=== PATIENT | male | born 1985 | race Caucasian/White ===

== ENCOUNTER 2016-07-09 15:10 | Emergency (ER) | payer OTHER ==
--- NOTE | 2016-07-09 18:39 | ED NURSING NOTES ---
Clinical Report - Nurses [facility] [place] [address] 07/09/2016 15:11 Patient: MARS SABILLON TRIAGE Triage time 16:33. Chief Complaint: RIGHT LOWER EXTREMITY PAIN. Location of symptoms- (frostbite on feet, fell through a icey pond, walked barefoot outside 2 miles). LEFT LOWER EXTREMITY PAIN. --16:34 Margarita Mora R.N. 16:39 07/09/16. BP: 135/74. HR: 78. RR: 18. O2 saturation: 100%. Temp: 97.6 F. Pain level now: 04/11. --16:40 Margarita Mora R.N. Weight: 74.8 kg stated. Height/Length: 71 inches Per Patient. BMI: 23. --16:38 Margarita Mora R.N. Medications None. --16:36 Margarita Mora R.N. Allergies No Known Drug Allergy. --16:36 Margarita Mora R.N. History Arrived by private vehicle. Historian: patient. --16:34 Margarita Mora R.N. Accompanied by friend. PAST MEDICAL HX: Negative. SURGERY HX: No history of previous surgery. SOCIAL HX: Former smoker. Occasional alcohol use. No drug use. NUTRITIONAL RISK ASSESSMENT: The nutritional risk assessment revealed no deficiencies. FUNCTIONAL ASSESSMENT: Functional assessment: no impairments noted. LEARNING NEEDS ASSESSMENT: The learning needs assessment revealed no barriers. --16:40 Margarita Mora R.N. PROBLEMS: URI. Lifestyle / Substance Problems. --16:37 Margarita Mora R.N. ADDITIONAL SURGERIES: no known surgeries. PHYSICAL ASSESSMENT 16:39 07/09/16. GENERAL / NEURO / PSYCH: ( Both feet, toes purple in color). --16:39 Margarita Mora R.N. NURSING PROGRESS NOTES 16:40 07/09/16. Patient identifiers checked. Call light placed in reach. Bed placed in lowest position. Patient ready for evaluation- chart flagged. --16:40 Margarita Mora R.N. 16:52 07/09/2016 Started bag #1 1000 mL IV Fluids IV NS (Saline); at 1000 mL/hr over 60 minute(s) via site #1. Allergies verified and confirmed 5 rights. IV patency established. IV site checked: no pain, redness, or swelling. IV flushed thoroughly pre- and post-medication administration. --16:57 Glenn Gaxiola R.N. 16:56 07/09/2016 Site #1 started via IV in the right antecubital space with an 20g angiocath, with aseptic technique and good blood return; one attempt. Blood drawn: rainbow set. Labeled in the presence of the patient and sent to the lab. --16:56 Glenn Gaxiola R.N. 16:59 07/09/2016 Dilaudid (HYDROmorphone HCl PF) IVP 1 mg given over 2 minute(s) via site #1. --17:04 Glenn Gaxiola R.N. 17:11 07/09/16. ( Photos taken of both feet.). --17:11 Steffany Watson 18:00 07/09/2016 IV Fluids IV NS Discontinued: bag #1 infused. Total amount infused: 1000 mL. IV patency established. IV site checked: no pain, redness, or swelling. IV flushed thoroughly. --19:30 Glenn Gaxiola R.N. 19:00 07/09/2016 Site #1 removed upon discharge. Catheter intact. Manual pressure, bandaid and bandage applied. --19:31 Glenn Gaxiola R.N. 19:05 07/09/2016 TDAP IM 0.5 mL given. (Lot#: [id number], expiration date: 04/06/2018, Insulation And Flooring Assembler: sanofi pasteur). Given in the left deltoid. Allergies verified. --19:10 Glenn Gaxiola R.N. DISPOSITION / DISCHARGE 19:00 07/09/16. BP: 117/68. HR: 87. RR: 16. O2 saturation: 98% on room air. Temp: 98.7 F (oral). Pain level now: 2/10. Additional comments: Toes of feet. --19:27 Glenn Gaxiola R.N. Departure time: 1909. --:27 Glenn Gaxiola R.N. 19:10. Condition at departure: improved. No learning barriers present. Discharge instructions provided and reviewed with the patient. Reviewed medication(s) precautions, dosing and course information (prescription given to pt). Treatments reviewed (frostbite). Reviewed referral to a surgeon (wound care center). Patient and maintainer sewer and waterworks verbalized understanding. Written instructions provided in Portuguese. The patient was discharged by the physician. He was discharged home and accompanied by maintainer sewer and waterworks. He left the Emergency Department ambulatory and via private vehicle. Surgical Appliances Salesperson driving. --19:29 Glenn Gaxiola R.N. Locked/Released at 07/09/2016 19:33 by Glenn Gaxiola R.N.
--- NOTE | 2016-07-09 18:39 | ED ORDER SUMMARY ---
..... Patient: MARS SABILLON OrderSheet [facility] VisitID: [id number] [place] [address] 31y, M Registration Date/Time: 07/09/2016 ORDER SHEET Weight: 74.8 kg (stated) Allergies: No Known Drug Allergy GENERAL ORDERS: CBC w Diff Urgent (16:55 07/09/2016 Guanaco Benson.N. verbal order read back to Jessica CHAN) (16:58 Guanaco R.N.) (Ack 17:00 Agustín) CMP Urgent (16:55 07/09/2016 Guanaco R.N. verbal order read back to Jessica CHAN) (16:58 Guanaco R.N.) (Ack 17:00 Agustín) -- (PHOTOGRAPH FEET.) (18:33 07/09/2016 Jessica CHAN) (18:34 TBergley) MEDICATION ORDERS: Tdap IM 0.5 mL (NOW) (17:49 07/09/2016 Jessica CHAN) (19:10 Guanaco R.N.) IV FLUIDS: IV NS : initial bolus none -, then 1000 mL/hr (NOW) (16:55 07/09/2016 Guanaco Benson.N. verbal order read back to Jessica CHAN) (16:57 Zoieelli R.N.) IV Saline Lock (16:55 07/09/2016 Guanaco R.N. verbal order read back to Jessica CHAN) (16:56 Guanaco R.N.) Dilaudid IV 1 mg (HIGH ALERT MEDICATION, NOW) (17:03 07/09/2016 Guanaco R.N. verbal order read back to Jessica CHAN) (17:04 Guanaco R.N.) ORDER SHEET NOTES: [Electronically signed by Glenn Gaxiola R.N. (19:33 07/09/2016)] [Electronically signed by Steven Zambrano MD (22:47 07/11/2016)] [Electronically locked/signed by Glenn Gaxiola R.N. (19:33 07/09/2016)]
--- NOTE | 2016-07-09 18:39 | ED CLINICAL REPORT ---
Clinical Report - Physicians/Mid Levels [facility] [address] [place] [address] 07/09/2016 15:11 Patient: MARS OWEN Time Seen: 16:58. Arrived- By private vehicle. Historian- patient and family. HISTORY OF PRESENT ILLNESS Chief Complaint: Injury to the right and left foot. The injury happened today. (In the wong). ( Mr. Oewn went for a long walk in the [facility] on a snowy day. The walk ended at 1 pm. He started in leather sports shoes. He ended in stocking feet. Further details are not forthcoming. He did tell the RN that he fell through ice into water.). No other injury. REVIEW OF SYSTEMS The patient complains of pain on weight bearing. No swelling, tingling, weakness, numbness or skin laceration. PAST HISTORY PCP: None Ops: None. Tetanus immunization status is unknown. SOCIAL HISTORY Former smoker. ADDITIONAL NOTES The nursing notes have been reviewed. PHYSICAL EXAM Vital Signs: 07/09/2016 19:00 BP: 117/68. HR: 87. RR: 16. O2 saturation: 98%. Temp: 98.7 F. Pain level now: 2/10. 07/09/2016 16:39 BP: 135/74. HR: 78. RR: 18. O2 saturation: 100%. Temp: 97.6 F. Pain level now: 10/10. Appearance: (The toes are quite blue distally. The forefoot is normal). Head: Head atraumatic. Respiratory: Chest nontender. Abdomen: Nontender. Extremities: Right great toe. (Blue no blisters). Left great toe. (Blue no blisters). Right second toe. (Blue no blisters). Left second toe. (Blue no blisters). Right third toe. (Blue no blisters). Left third toe. (Blue no blisters). Right fourth toe. (Blue no blisters). Left fourth toe. (Blue no blisters). Right fifth toe. (Blue no blisters). No ankle injury. Foot and ankle exam otherwise negative. Extremities otherwise negative. Neuro, Vascular and Tendons: Vascular status intact. No pulse deficit present. Motor intact. Neuro: No alteration in mental status. PROGRESS AND PROCEDURES Course of Care: 18:35 07/09/16. I discussed the patient with Dr Pennington. He will be seen in the wound clinic. He has frostbite. Conservative management is indicated. He is given Dilaudid for pain control and Rx for pain control. Disposition: Discharged. Condition: stable. CLINICAL IMPRESSION Frostbite involving the right foot and left foot. INSTRUCTIONS (KEEP FEET VERY CLEAN ELEVATE AND KEEP WARM THIS WILL TAKE MONTHS TO BE CARED FOR YOU NEED TO BE SEEN AT THE WOUND CARE CLINIC. MINIMAL WAKING. STIFF WIDE TOE SHOES.). Prescription Medications: Oxycodone/APAP 5 mg/325 mg: take 1 tablet orally every 4 hours as needed for pain. Dispense twenty-five (25). No refill. Understanding of the discharge instructions verbalized by patient and family. Follow-up with: Akil Pennington MD, General Surgeon, , [facility], [address] [place] [address] [address], [place], [address] Follow up. Call for an appointment. Follow-up with: [facility], , , [facility], [address] [place] [address] [address], [place], [address] Follow up. Call for the next available appointment. (Electronically signed by Steven Zambrano MD 07/11/2016 22:47)
--- NOTE | 2016-07-09 18:39 | ED NURSING NOTES ---
Clinical Report - Nurses [facility] [place] [address] 07/09/2016 15:11 Patient: MARS SABILLON TRIAGE Triage time 16:33. Chief Complaint: RIGHT LOWER EXTREMITY PAIN. Location of symptoms- (frostbite on feet, fell through a icey pond, walked barefoot outside 2 miles). LEFT LOWER EXTREMITY PAIN. --16:34 Margarita Mora R.N. 16:39 07/09/16. BP: 135/74. HR: 78. RR: 18. O2 saturation: 100%. Temp: 97.6 F. Pain level now: 04/11. --16:40 Margarita Mora R.N. Weight: 74.8 kg stated. Height/Length: 71 inches Per Patient. BMI: 23. --16:38 Margarita Mora R.N. Medications None. --16:36 Margarita Mora R.N. Allergies No Known Drug Allergy. --16:36 Margarita Mora R.N. History Arrived by private vehicle. Historian: patient. --16:34 Margarita Mora R.N. Accompanied by friend. PAST MEDICAL HX: Negative. SURGERY HX: No history of previous surgery. SOCIAL HX: Former smoker. Occasional alcohol use. No drug use. NUTRITIONAL RISK ASSESSMENT: The nutritional risk assessment revealed no deficiencies. FUNCTIONAL ASSESSMENT: Functional assessment: no impairments noted. LEARNING NEEDS ASSESSMENT: The learning needs assessment revealed no barriers. --16:40 Margarita Mora R.N. PROBLEMS: URI. Lifestyle / Substance Problems. --16:37 Margarita Mora R.N. ADDITIONAL SURGERIES: no known surgeries. PHYSICAL ASSESSMENT 16:39 07/09/16. GENERAL / NEURO / PSYCH: ( Both feet, toes purple in color). --16:39 Margarita Mora R.N. NURSING PROGRESS NOTES 16:40 07/09/16. Patient identifiers checked. Call light placed in reach. Bed placed in lowest position. Patient ready for evaluation- chart flagged. --16:40 Margarita Mora R.N. 16:52 07/09/2016 Started bag #1 1000 mL IV Fluids IV NS (Saline); at 1000 mL/hr over 60 minute(s) via site #1. Allergies verified and confirmed 5 rights. IV patency established. IV site checked: no pain, redness, or swelling. IV flushed thoroughly pre- and post-medication administration. --16:57 Glenn Gaxiola R.N. 16:56 07/09/2016 Site #1 started via IV in the right antecubital space with an 20g angiocath, with aseptic technique and good blood return; one attempt. Blood drawn: rainbow set. Labeled in the presence of the patient and sent to the lab. --16:56 Glenn Gaxiola R.N. 16:59 07/09/2016 Dilaudid (HYDROmorphone HCl PF) IVP 1 mg given over 2 minute(s) via site #1. --17:04 Glenn Gaxiola R.N. 17:11 07/09/16. ( Photos taken of both feet.). --17:11 Steffany Watson 18:00 07/09/2016 IV Fluids IV NS Discontinued: bag #1 infused. Total amount infused: 1000 mL. IV patency established. IV site checked: no pain, redness, or swelling. IV flushed thoroughly. --19:30 Glenn Gaxiola R.N. 19:00 07/09/2016 Site #1 removed upon discharge. Catheter intact. Manual pressure, bandaid and bandage applied. --19:31 Glenn Gaxiola R.N. 19:05 07/09/2016 TDAP IM 0.5 mL given. (Lot#: [id number], expiration date: 04/06/2018, Talent Manager: sanofi pasteur). Given in the left deltoid. Allergies verified. --19:10 Glenn Gaxiola R.N. DISPOSITION / DISCHARGE 19:00 07/09/16. BP: 117/68. HR: 87. RR: 16. O2 saturation: 98% on room air. Temp: 98.7 F (oral). Pain level now: 2/10. Additional comments: Toes of feet. --19:27 Glenn Gaxiola R.N. Departure time: 1909. --:27 Glenn Gaxiola R.N. 19:10. Condition at departure: improved. No learning barriers present. Discharge instructions provided and reviewed with the patient. Reviewed medication(s) precautions, dosing and course information (prescription given to pt). Treatments reviewed (frostbite). Reviewed referral to a surgeon (wound care center). Patient and animal husbandry technician verbalized understanding. Written instructions provided in Icelandic. The patient was discharged by the physician. He was discharged home and accompanied by animal husbandry technician. He left the Emergency Department ambulatory and via private vehicle. Apparel Cutter driving. --19:29 Glenn Gaxiola R.N. Locked/Released at 07/09/2016 19:33 by Glenn Gaxiola R.N.
--- NOTE | 2016-07-09 18:39 | ED ORDER SUMMARY ---
..... Patient: MARS SABILLON OrderSheet [facility] VisitID: [id number] [place] [address] 31y, M Registration Date/Time: 07/09/2016 ORDER SHEET Weight: 74.8 kg (stated) Allergies: No Known Drug Allergy GENERAL ORDERS: CBC w Diff Urgent (16:55 07/09/2016 Guanaco Benson.N. verbal order read back to Jessica CHAN) (16:58 Guanaco R.N.) (Ack 17:00 Agustín) CMP Urgent (16:55 07/09/2016 Guanaco R.N. verbal order read back to Jessica CHAN) (16:58 Guanaco R.N.) (Ack 17:00 Agustín) -- (PHOTOGRAPH FEET.) (18:33 07/09/2016 Jessica CHAN) (18:34 TBergley) MEDICATION ORDERS: Tdap IM 0.5 mL (NOW) (17:49 07/09/2016 Jessica CHAN) (19:10 Guanaco R.N.) IV FLUIDS: IV NS : initial bolus none -, then 1000 mL/hr (NOW) (16:55 07/09/2016 Guanaco Benson.N. verbal order read back to Jessica CHAN) (16:57 Zoieelli R.N.) IV Saline Lock (16:55 07/09/2016 Guanaco R.N. verbal order read back to Jessica CHAN) (16:56 Guanaco R.N.) Dilaudid IV 1 mg (HIGH ALERT MEDICATION, NOW) (17:03 07/09/2016 Guanaco R.N. verbal order read back to Jessica CHAN) (17:04 Guanaco R.N.) ORDER SHEET NOTES: [Electronically signed by Glenn Gaxiola R.N. (19:33 07/09/2016)] [Electronically signed by Steven Zambrano MD (22:47 07/11/2016)] [Electronically locked/signed by Glenn Gaxiola R.N. (19:33 07/09/2016)]
--- NOTE | 2016-07-09 18:39 | ED CLINICAL REPORT ---
Clinical Report - Physicians/Mid Levels [facility] [address] [place] [address] 07/09/2016 15:11 Patient: MARS OWEN Time Seen: 16:58. Arrived- By private vehicle. Historian- patient and family. HISTORY OF PRESENT ILLNESS Chief Complaint: Injury to the right and left foot. The injury happened today. (In the wong). ( Mr. Owen went for a long walk in the [facility] [place] on a snowy day. The walk ended at 1 pm. He started in leather sports shoes. He ended in stocking feet. Further details are not forthcoming. He did tell the RN that he fell through ice into water.). No other injury. REVIEW OF SYSTEMS The patient complains of pain on weight bearing. No swelling, tingling, weakness, numbness or skin laceration. PAST HISTORY PCP: None Ops: None. Tetanus immunization status is unknown. SOCIAL HISTORY Former smoker. ADDITIONAL NOTES The nursing notes have been reviewed. PHYSICAL EXAM Vital Signs: 07/09/2016 19:00 BP: 117/68. HR: 87. RR: 16. O2 saturation: 98%. Temp: 98.7 F. Pain level now: 2/10. 07/09/2016 16:39 BP: 135/74. HR: 78. RR: 18. O2 saturation: 100%. Temp: 97.6 F. Pain level now: 10/10. Appearance: (The toes are quite blue distally. The forefoot is normal). Head: Head atraumatic. Respiratory: Chest nontender. Abdomen: Nontender. Extremities: Right great toe. (Blue no blisters). Left great toe. (Blue no blisters). Right second toe. (Blue no blisters). Left second toe. (Blue no blisters). Right third toe. (Blue no blisters). Left third toe. (Blue no blisters). Right fourth toe. (Blue no blisters). Left fourth toe. (Blue no blisters). Right fifth toe. (Blue no blisters). No ankle injury. Foot and ankle exam otherwise negative. Extremities otherwise negative. Neuro, Vascular and Tendons: Vascular status intact. No pulse deficit present. Motor intact. Neuro: No alteration in mental status. PROGRESS AND PROCEDURES Course of Care: 18:35 07/09/16. I discussed the patient with Dr Pennington. He will be seen in the wound clinic. He has frostbite. Conservative management is indicated. He is given Dilaudid for pain control and Rx for pain control. Disposition: Discharged. Condition: stable. CLINICAL IMPRESSION Frostbite involving the right foot and left foot. INSTRUCTIONS (KEEP FEET VERY CLEAN ELEVATE AND KEEP WARM THIS WILL TAKE MONTHS TO BE CARED FOR YOU NEED TO BE SEEN AT THE WOUND CARE CLINIC. MINIMAL WAKING. STIFF WIDE TOE SHOES.). Prescription Medications: Oxycodone/APAP 5 mg/325 mg: take 1 tablet orally every 4 hours as needed for pain. Dispense twenty-five (25). No refill. Understanding of the discharge instructions verbalized by patient and family. Follow-up with: Akil Pennington MD, General Surgeon, , [facility], [address] [place] [address], [place], [address] Follow up. Call for an appointment. Follow-up with: [facility], , , [facility], [address] [place] [address] [address], [place], [address] Follow up. Call for the next available appointment. (Electronically signed by Steven Zambrano MD 07/11/2016 22:47)
--- NOTE | 2016-07-11 22:47 | ED MED RECONCILIATION SUMMARY ---
Patient: MARS SABILLON Medication Reconciliation Report [facility] VisitID: [id number] [place] [address] 31y, M Registration Date/Time: 07/09/2016 Weight: 74.8 kg Height/Length: 71 in. BMI: 23.0 ALLERGIES: No Known Drug Allergy The patient's Home Medications are listed below: NONE. The source(s) of the original Home Medication information: Not obtained. The following Medications were given to the patient in the Emergency Department: IV NS IV Fluids bolus 0, then 1000 mL/hr, administered: 07/09/2016 4:52:00 PM Dilaudid [IVP] IVP 1 mg, administered: 07/09/2016 4:59:00 PM TDAP [IM] IM 0.5 mL, administered: 07/09/2016 7:05:00 PM The following Medications were prescribed to the patient: Oxycodone/APAP 5 mg/325 mg: take 1 tablet orally every 4 hours as needed for pain. Dispense twenty-five (25). No refill. -- Steven Zambrano MD
--- NOTE | 2016-07-11 22:47 | ED MAR SUMMARY ---
..... Medication Administration Record [facility] [address] [place] [address] Patient: MARS SABILLON Visit ID: [id number] 31y, M Weight: 74.8 kg Height/Length: 71 in BMI: 23 ALLERGIES: No Known Drug Allergy Start 16:52 07/09/2016 Glenn Gaxiola R.N., Stop 18:00 07/09/2016 Glenn Gaxiola R.N. Medication Administered: IV NS (SALINE), Dose: IV Fluids over 60 minute(s), Rate: 1000 mL/hr, Dispensed: 1000 mL bag, Site: #1. Medication Ordered: IV NS : initial bolus none -, then 1000 mL/hr (NOW). Given 16:59 07/09/2016 Glenn Gaxiola R.N. Medication Administered: DILAUDID [IVP] (HYDROMORPHONE HCL PF), Dose: 1 mg IVP over 2 minute(s), Site: #1 right AC. Medication Ordered: Dilaudid IV 1 mg (HIGH ALERT MEDICATION, NOW). Given 19:05 07/09/2016 Glenn Gaxiola R.N. Medication Administered: TDAP [IM], Dose: 0.5 mL IM. Medication Ordered: Tdap IM 0.5 mL (NOW).
--- NOTE | 2016-07-11 22:47 | ED MED RECONCILIATION SUMMARY ---
Patient: MARS SABILLON Medication Reconciliation Report [facility] VisitID: [id number] [place] [address] 31y, M Registration Date/Time: 07/09/2016 Weight: 74.8 kg Height/Length: 71 in. BMI: 23.0 ALLERGIES: No Known Drug Allergy The patient's Home Medications are listed below: NONE. The source(s) of the original Home Medication information: Not obtained. The following Medications were given to the patient in the Emergency Department: IV NS IV Fluids bolus 0, then 1000 mL/hr, administered: 07/09/2016 4:52:00 PM Dilaudid [IVP] IVP 1 mg, administered: 07/09/2016 4:59:00 PM TDAP [IM] IM 0.5 mL, administered: 07/09/2016 7:05:00 PM The following Medications were prescribed to the patient: Oxycodone/APAP 5 mg/325 mg: take 1 tablet orally every 4 hours as needed for pain. Dispense twenty-five (25). No refill. -- Steven Zambrano MD
--- NOTE | 2016-07-11 22:47 | ED DISCHARGE INSTRUCTIONS ---
Patient: MARS SABILLON General Instructions [facility] VisitID: [id number] [place] [address] 31y, M Registration Date/Time: 07/09/2016 Frostbite involving the right foot and left foot. INSTRUCTIONS (KEEP FEET VERY CLEAN ELEVATE AND KEEP WARM THIS WILL TAKE MONTHS TO BE CARED FOR YOU NEED TO BE SEEN AT THE WOUND CARE CLINIC. MINIMAL WAKING. STIFF WIDE TOE SHOES.). Prescription Medications: Oxycodone/APAP 5 mg/325 mg: take 1 tablet orally every 4 hours as needed for pain. Dispense twenty-five (25). No refill. Understanding of the discharge instructions verbalized by patient and family. Follow-up with: Akil Pennington MD, General Surgeon, , [facility], [address] [place] [address] [address], [place] [id number] Follow up. Call for an appointment. Follow-up with: [facility], , , [facility], [address] [place] [address] [address], [place] [phone] Follow up. Call for the next available appointment. ADDITIONAL INFORMATION Frostbite FROSTBITE is a freezing injury to the tissues. Ice crystals form in the frozen tissue and blood stops flowing. Blood vessels may become permanently damaged. The early stages of frostbite cause a white or blue-white skin color. The skin is cold, firm or hard. There is usually no pain and it is numb to the touch. Skin peeling, clear or blood-filled blisters may form. After re-warming, the frostbitten part will feel numb, then start to throb. Throbbing may last weeks to months and lead to tingling or electric shock feelings. There may be cold sensitivity, chronic numbness, chronic pain and other symptoms that can last years. At the time of initial injury, it is very hard to know the amount of tissue damage. It may take six months to determine which tissue will recover and which will remain permanently damaged. Final treatment may require surgery to remove any tissue. Home Care: Rest and elevate the injured part for the first 48 hours. Protect it from re-injury. If a dressing was applied, change it once a day. If the bandage sticks, soak it off in warm water . Wash the injured area daily with soap and water. You may apply Aloe Vera cream (or similar skin moisturizer) to closed blisters. If blisters are open, apply an antibiotic ointment or cream as directed. Check the area for the warning signs of infection listed below. You may use acetaminophen (Tylenol) or ibuprofen (Motrin, Advil) to control pain, unless another pain medicine was prescribed. [ NOTE : If you have chronic liver or kidney disease or ever had a stomach ulcer or GI bleeding, talk with your doctor before using these medicines.] Avoid alcohol and smoking since this affects the small blood vessels. Follow Up with your doctor as advised. Get Prompt Medical Attention if any of the following occur: Increasing pain, redness, swelling or pus coming from the wound Fever of 100.4F (38C) or higher, or as directed by your healthcare provider Oxycodone Hydrochloride, Acetaminophen Oral tablet What is this medicine? ACETAMINOPHEN; OXYCODONE (a set a ENEDELIA eva fen; ox i KOE done) is a pain reliever. It is used to treat mild to moderate pain. How should I use this medicine? Take this medicine by mouth with a full glass of water. Follow the directions on the prescription label. Take your medicine at regular intervals. Do not take your medicine more often than directed. Talk to your drapery seamstress regarding the use of this medicine in children. Special care may be needed. Patients over 65 years old may have a stronger reaction and need a smaller dose. What side effects may I notice from receiving this medicine? Side effects that you should report to your doctor or health direct care professional as soon as possible: allergic reactions like skin rash, itching or hives, swelling of the face, lips, or tongue breathing difficulties, wheezing confusion light headedness or fainting spells severe stomach pain yellowing of the skin or the whites of the eyes Side effects that usually do not require medical attention (report to your doctor or health direct care professional if they continue or are bothersome): dizziness drowsiness nausea vomiting What may interact with this medicine? alcohol antihistamines barbiturates like amobarbital, butalbital, butabarbital, methohexital, pentobarbital, phenobarbital, thiopental, and secobarbital benztropine drugs for bladder problems like solifenacin, trospium, oxybutynin, tolterodine, hyoscyamine, and methscopolamine drugs for breathing problems like ipratropium and tiotropium drugs for certain stomach or intestine problems like propantheline, homatropine methylbromide, glycopyrrolate, atropine, belladonna, and dicyclomine general anesthetics like etomidate, ketamine, nitrous oxide, propofol, desflurane, enflurane, halothane, isoflurane, and sevoflurane medicines for depression, anxiety, or psychotic disturbances medicines for sleep muscle relaxants naltrexone narcotic medicines (opiates) for pain phenothiazines like perphenazine, thioridazine, chlorpromazine, mesoridazine, fluphenazine, prochlorperazine, promazine, and trifluoperazine scopolamine tramadol trihexyphenidyl What if I miss a dose? If you miss a dose, take it as soon as you can. If it is almost time for your next dose, take only that dose. Do not take double or extra doses. Where should I keep my medicine? Keep out of the reach of children. This medicine can be abused. Keep your medicine in a safe place to protect it from theft. Do not share this medicine with anyone. Selling or giving away this medicine is dangerous and against the law. Store at room temperature between 20 and 25 degrees C (68 and 77 degrees F). Keep container tightly closed. Protect from light. This medicine may cause accidental overdose and if it is taken by other adults, children, or pets. Flush any unused medicine down the toilet to reduce the chance of harm. Do not use the medicine after the expiration date. What should I tell my health care provider before I take this medicine? They need to know if you have any of these conditions: brain tumor Crohn's disease, inflammatory bowel disease, or ulcerative colitis drink more than 3 alcohol containing drinks per day drug abuse or addiction head injury heart or circulation problems kidney disease or problems going to the bathroom liver disease lung disease, asthma, or breathing problems an unusual or allergic reaction to acetaminophen, oxycodone, other opioid analgesics, other medicines, foods, dyes, or preservatives or trying to get breast-feeding What should I watch for while using this medicine? Tell your doctor or health direct care professional if your pain does not go away, if it gets worse, or if you have new or a different type of pain. You may develop tolerance to the medicine. Tolerance means that you will need a higher dose of the medication for pain relief. Tolerance is normal and is expected if you take this medicine for a long time. Do not suddenly stop taking your medicine because you may develop a severe reaction. Your body becomes used to the medicine. This does NOT mean you are addicted. Addiction is a behavior related to getting and using a drug for a non-medical reason. If you have pain, you have a medical reason to take pain medicine. Your doctor will tell you how much medicine to take. If your doctor wants you to stop the medicine, the dose will be slowly lowered over time to avoid any side effects. You may get drowsy or dizzy. Do not drive, use machinery, or do anything that needs mental alertness until you know how this medicine affects you. Do not stand or sit up quickly, especially if you are an older patient. This reduces the risk of dizzy or fainting spells. Alcohol may interfere with the effect of this medicine. Avoid alcoholic drinks. There are different types of narcotic medicines (opiates) for pain. If you take more than one type at the same time, you may have more side effects. Give your health care provider a list of all medicines you use. Your doctor will tell you how much medicine to take. Do not take more medicine than directed. Call emergency for help if you have problems breathing. The medicine will cause constipation. Try to have a bowel movement at least every 2 to 3 days. If you do not have a bowel movement for 3 days, call your doctor or health direct care professional. Do not take Tylenol (acetaminophen) or medicines that have acetaminophen with this medicine. Too much acetaminophen can be very dangerous. Many nonprescription medicines contain acetaminophen. Always read the labels carefully to avoid taking more acetaminophen. You have been given the following additional information: Frostbite Oxycodone Hydrochloride, Acetaminophen Oral tablet (Electronically signed by Steven Zambrano MD 07/11/2016 22:47)
--- NOTE | 2016-07-11 22:47 | ED MAR SUMMARY ---
..... Medication Administration Record [facility] [address] [place] [address] Patient: MARS SABILLON Visit ID: [id number] 31y, M Weight: 74.8 kg Height/Length: 71 in BMI: 23 ALLERGIES: No Known Drug Allergy Start 16:52 07/09/2016 Glenn Gaxiola R.N., Stop 18:00 07/09/2016 Glenn Gaxiola R.N. Medication Administered: IV NS (SALINE), Dose: IV Fluids over 60 minute(s), Rate: 1000 mL/hr, Dispensed: 1000 mL bag, Site: #1. Medication Ordered: IV NS : initial bolus none -, then 1000 mL/hr (NOW). Given 16:59 07/09/2016 Glenn Gaxiola R.N. Medication Administered: DILAUDID [IVP] (HYDROMORPHONE HCL PF), Dose: 1 mg IVP over 2 minute(s), Site: #1 right AC. Medication Ordered: Dilaudid IV 1 mg (HIGH ALERT MEDICATION, NOW). Given 19:05 07/09/2016 Glenn Gaxiola R.N. Medication Administered: TDAP [IM], Dose: 0.5 mL IM. Medication Ordered: Tdap IM 0.5 mL (NOW).
--- NOTE | 2016-07-11 22:47 | ED DISCHARGE INSTRUCTIONS ---
Patient: MARS SABILLON General Instructions [facility] VisitID: [id number] [place] [address] 31y, M Registration Date/Time: 07/09/2016 Frostbite involving the right foot and left foot. INSTRUCTIONS (KEEP FEET VERY CLEAN ELEVATE AND KEEP WARM THIS WILL TAKE MONTHS TO BE CARED FOR YOU NEED TO BE SEEN AT THE WOUND CARE CLINIC. MINIMAL WAKING. STIFF WIDE TOE SHOES.). Prescription Medications: Oxycodone/APAP 5 mg/325 mg: take 1 tablet orally every 4 hours as needed for pain. Dispense twenty-five (25). No refill. Understanding of the discharge instructions verbalized by patient and family. Follow-up with: Akil Pennington MD, General Surgeon, , [facility], [address] [place] [address] [address], [place] [address] Follow up. Call for an appointment. Follow-up with: [facility], , , [facility], [address] [place] [address] [address], [place] [phone] Follow up. Call for the next available appointment. ADDITIONAL INFORMATION Frostbite FROSTBITE is a freezing injury to the tissues. Ice crystals form in the frozen tissue and blood stops flowing. Blood vessels may become permanently damaged. The early stages of frostbite cause a white or blue-white skin color. The skin is cold, firm or hard. There is usually no pain and it is numb to the touch. Skin peeling, clear or blood-filled blisters may form. After re-warming, the frostbitten part will feel numb, then start to throb. Throbbing may last weeks to months and lead to tingling or electric shock feelings. There may be cold sensitivity, chronic numbness, chronic pain and other symptoms that can last years. At the time of initial injury, it is very hard to know the amount of tissue damage. It may take six months to determine which tissue will recover and which will remain permanently damaged. Final treatment may require surgery to remove any tissue. Home Care: Rest and elevate the injured part for the first 48 hours. Protect it from re-injury. If a dressing was applied, change it once a day. If the bandage sticks, soak it off in warm water . Wash the injured area daily with soap and water. You may apply Aloe Vera cream (or similar skin moisturizer) to closed blisters. If blisters are open, apply an antibiotic ointment or cream as directed. Check the area for the warning signs of infection listed below. You may use acetaminophen (Tylenol) or ibuprofen (Motrin, Advil) to control pain, unless another pain medicine was prescribed. [ NOTE : If you have chronic liver or kidney disease or ever had a stomach ulcer or GI bleeding, talk with your doctor before using these medicines.] Avoid alcohol and smoking since this affects the small blood vessels. Follow Up with your doctor as advised. Get Prompt Medical Attention if any of the following occur: Increasing pain, redness, swelling or pus coming from the wound Fever of 100.4F (38C) or higher, or as directed by your healthcare provider Oxycodone Hydrochloride, Acetaminophen Oral tablet What is this medicine? ACETAMINOPHEN; OXYCODONE (a set a ENEDELIA eva fen; ox i KOE done) is a pain reliever. It is used to treat mild to moderate pain. How should I use this medicine? Take this medicine by mouth with a full glass of water. Follow the directions on the prescription label. Take your medicine at regular intervals. Do not take your medicine more often than directed. Talk to your thinner sprayer regarding the use of this medicine in children. Special care may be needed. Patients over 65 years old may have a stronger reaction and need a smaller dose. What side effects may I notice from receiving this medicine? Side effects that you should report to your doctor or health career development associate as soon as possible: allergic reactions like skin rash, itching or hives, swelling of the face, lips, or tongue breathing difficulties, wheezing confusion light headedness or fainting spells severe stomach pain yellowing of the skin or the whites of the eyes Side effects that usually do not require medical attention (report to your doctor or health career development associate if they continue or are bothersome): dizziness drowsiness nausea vomiting What may interact with this medicine? alcohol antihistamines barbiturates like amobarbital, butalbital, butabarbital, methohexital, pentobarbital, phenobarbital, thiopental, and secobarbital benztropine drugs for bladder problems like solifenacin, trospium, oxybutynin, tolterodine, hyoscyamine, and methscopolamine drugs for breathing problems like ipratropium and tiotropium drugs for certain stomach or intestine problems like propantheline, homatropine methylbromide, glycopyrrolate, atropine, belladonna, and dicyclomine general anesthetics like etomidate, ketamine, nitrous oxide, propofol, desflurane, enflurane, halothane, isoflurane, and sevoflurane medicines for depression, anxiety, or psychotic disturbances medicines for sleep muscle relaxants naltrexone narcotic medicines (opiates) for pain phenothiazines like perphenazine, thioridazine, chlorpromazine, mesoridazine, fluphenazine, prochlorperazine, promazine, and trifluoperazine scopolamine tramadol trihexyphenidyl What if I miss a dose? If you miss a dose, take it as soon as you can. If it is almost time for your next dose, take only that dose. Do not take double or extra doses. Where should I keep my medicine? Keep out of the reach of children. This medicine can be abused. Keep your medicine in a safe place to protect it from theft. Do not share this medicine with anyone. Selling or giving away this medicine is dangerous and against the law. Store at room temperature between 20 and 25 degrees C (68 and 77 degrees F). Keep container tightly closed. Protect from light. This medicine may cause accidental overdose and if it is taken by other adults, children, or pets. Flush any unused medicine down the toilet to reduce the chance of harm. Do not use the medicine after the expiration date. What should I tell my health care provider before I take this medicine? They need to know if you have any of these conditions: brain tumor Crohn's disease, inflammatory bowel disease, or ulcerative colitis drink more than 3 alcohol containing drinks per day drug abuse or addiction head injury heart or circulation problems kidney disease or problems going to the bathroom liver disease lung disease, asthma, or breathing problems an unusual or allergic reaction to acetaminophen, oxycodone, other opioid analgesics, other medicines, foods, dyes, or preservatives or trying to get breast-feeding What should I watch for while using this medicine? Tell your doctor or health career development associate if your pain does not go away, if it gets worse, or if you have new or a different type of pain. You may develop tolerance to the medicine. Tolerance means that you will need a higher dose of the medication for pain relief. Tolerance is normal and is expected if you take this medicine for a long time. Do not suddenly stop taking your medicine because you may develop a severe reaction. Your body becomes used to the medicine. This does NOT mean you are addicted. Addiction is a behavior related to getting and using a drug for a non-medical reason. If you have pain, you have a medical reason to take pain medicine. Your doctor will tell you how much medicine to take. If your doctor wants you to stop the medicine, the dose will be slowly lowered over time to avoid any side effects. You may get drowsy or dizzy. Do not drive, use machinery, or do anything that needs mental alertness until you know how this medicine affects you. Do not stand or sit up quickly, especially if you are an older patient. This reduces the risk of dizzy or fainting spells. Alcohol may interfere with the effect of this medicine. Avoid alcoholic drinks. There are different types of narcotic medicines (opiates) for pain. If you take more than one type at the same time, you may have more side effects. Give your health care provider a list of all medicines you use. Your doctor will tell you how much medicine to take. Do not take more medicine than directed. Call emergency for help if you have problems breathing. The medicine will cause constipation. Try to have a bowel movement at least every 2 to 3 days. If you do not have a bowel movement for 3 days, call your doctor or health career development associate. Do not take Tylenol (acetaminophen) or medicines that have acetaminophen with this medicine. Too much acetaminophen can be very dangerous. Many nonprescription medicines contain acetaminophen. Always read the labels carefully to avoid taking more acetaminophen. You have been given the following additional information: Frostbite Oxycodone Hydrochloride, Acetaminophen Oral tablet (Electronically signed by Steven Zambrano MD 07/11/2016 22:47)
== END 2016-07-09 19:10 | disposition home or self-care (01) ==
LOC: ED SRH 15:10
DX: T33.821A Superficial frostbite of right foot, initial encounter (principal); T33.822A Superficial frostbite of left foot, initial encounter; X31.XXXA Exposure to excessive natural cold, initial encounter; Y93.01 Activity, walking, marching and hiking; Y92.89 Other specified places as the place of occurrence of the external cause; Y99.9 Unspecified external cause status; Z87.891 Personal history of nicotine dependence; Z23 Encounter for immunization
CPT/HCPCS: 90074; 90100; 95059